=== PATIENT | male | born 1965 | race Caucasian/White ===

== ENCOUNTER 2021-08-06 15:02 | Outpatient (REF) | payer OTHER, SELFPAY ==
[2021-08-06 16:02] LABS: Alanine Aminotransferase 17 U/L (0-40); Aspartate Amino Transferase 16 U/L (5-37)
== END 2021-08-06 15:03 | disposition home or self-care (01) ==
LOC: HO.LAB 15:02
PROVIDERS: PCP Family Medicine; Visit Provider Family Medicine
DX: E78.00 Pure hypercholesterolemia, unspecified (principal); Z79.899 Other long term (current) drug therapy
CPT/HCPCS: 36415; 82550; 84450; 84460

== ENCOUNTER 2023-03-23 07:39 | Outpatient (REF) | payer OTHER, SELFPAY ==
[2023-03-23 11:26] LABS: Alanine Aminotransferase 19 U/L (0-40); Aspartate Amino Transferase 18 U/L (5-37)
== END 2023-03-23 07:40 | disposition home or self-care (01) ==
LOC: HO.10HDL 07:39
PROVIDERS: Visit Provider Family Medicine
DX: E78.00 Pure hypercholesterolemia, unspecified (principal); Z79.899 Other long term (current) drug therapy
CPT/HCPCS: 36415; 82550; 84450; 84460

== ENCOUNTER 2024-03-23 07:30 | Outpatient (REF) | payer OTHER, SELFPAY ==
[2024-03-23 11:18] LABS: Alanine Aminotransferase 18 U/L (0-40); Aspartate Amino Transferase 19 U/L (5-37)
== END 2024-03-23 07:31 | disposition home or self-care (01) ==
LOC: HO.10HDL 07:30
PROVIDERS: Visit Provider Family Medicine
DX: E78.00 Pure hypercholesterolemia, unspecified (principal); Z79.899 Other long term (current) drug therapy
CPT/HCPCS: 36415; 82550; 84450; 84460

== ENCOUNTER 2024-09-05 08:36 | Outpatient (REF) | payer OTHER, SELFPAY ==
[2024-09-05 11:47] LABS: Alanine Aminotransferase 30 U/L (0-40); Aspartate Amino Transferase 28 U/L (5-37); Cholesterol 153 mg/dL (<200); Estimated Glomerular Filt Rate > 60; Glucose Fasting 101 mg/dL (60-99); HDL Cholesterol 41 mg/dL (>40); LDL Cholesterol Calculated 98 mg/dL (<100); Triglycerides 73 mg/dL (<150)
[2024-09-05 12:01] LABS: Estimated Average Glucose 117 mg/dL; Hemoglobin A1c % 5.7 % (<6.0); Total Hemoglobin (HGBA1C) 4014.3776 umol/L
== END 2024-09-05 08:37 | disposition home or self-care (01) ==
LOC: HO.10HDL 08:36
PROVIDERS: Visit Provider Family Medicine
DX: E78.00 Pure hypercholesterolemia, unspecified (principal); Z79.899 Other long term (current) drug therapy; Z83.3 Family history of diabetes mellitus
CPT/HCPCS: 36415; 80061; 82550; 82565; 82947; 83036; 84450; 84460

== ENCOUNTER 2025-03-07 07:39 | Outpatient (AMB) | payer OTHER, SELFPAY ==
--- NOTE | 2025-03-07 07:46 | A.OFFPC_ITS ---
Vital Signs 03/07/25 07:57 Height 5 ft 3 in Weight 77.111 kg BMI 30.1 BP 144/84 H Respiration 14 Pulse 69 Pulse Source Pulse Oximeter Temp 97.9 F Temp Source Temporal Artery Scan Pulse Oximetry (%) 97 Oxygen Delivery Method Room Air Intake Visit Reasons: 4 MO F/UP - [facility] Call Center Dispatcher Required: No Accompanied by: Self / Same As Patient Allergies No Known Allergies Allergy (Verified 03/07/25 07:54) Tobacco use date assessed: 03/07/25 Dental Screening Dental Screen Date: 03/07/25 Did you have a dental visit in the last 12 months?: Yes Did you have a dental problem in the last 6 months where you did not have access to dental care?: No Was dental information given to patient?: No HPI HPI Comments History of Present Illness Details 59-year-old male with history of hyperch olesterolemia, seasonal allergies, right bundle branch block, PVCs presenting to the office today for management of chronic conditions and to establish care. Hypercholesterolemia-last LDL 98. On atorvastatin 10 mg daily Hypertension/PVCs-stable on metoprolol 50 mg ER. Saw cards in [facility] recently. Had Holter, will request results. Recheck 136/82. Checking at home. Obesity- BMI 30.1. Eating healthy and exercising with stretching, hiking, runn ing, calisthenics Concerns: None Health maintenance: Last colonoscopy- about 2019. [facility], obtain records Due for PSA ROS: General: No fevers, malaise, unintentional weight loss HEENT: No blurred vision, diplopia. No sore throat, nasal congestion, rhinorrhea, sinus pain, ear pain Cardiovascular: No chest pain, palpitations, or leg edema Respiratory: No shortness of breath, wheezing, cough GI: No abdominal pain, nausea, vomiting, diarrhea, constipation, melena, hematochezia : No dysuria, hematuria, increased urinary frequency, decreased urinary output MSK: No myalgia, back pain Neuro: No headaches, weakness, paresthesias Skin: No rashes or lesions EXAM: Constitutional - Awake and Alert, No apparent distress Eyes - PERRL Cardiovascular - S1S2, RRR, No edema Respiratory - Normal lung expansion, Normal respiratory effort, No respiratory distress, CTA bilaterally Extremities - no calf tenderness bilaterally, no swelling Skin - Warm/Dry Neurological - Alert & oriented x3 Psychological - Appropriate affect [facility] Medical History (Updated 03/07/25 @ 08:10 by EVARISTO Santos) PVC (premature ventricular contraction) Obesity HLD (hyperlipidemia) HTN (hypertension) Social History Housing: House Patient Tobacco Use Status: Never used Tobacco e-Cigarette/Vaping Use: Never Used service: Yes ([employer]) Current occupational status: retired Hearing needs: Yes (Bilateral) Vision needs: Yes (Rx glasses) Questionnaire PHQ-9 Over the last 2 weeks, how often have you been bothered by any of the following problems? 1. Little interest or pleasure in doing things: not at all 2. Feeling down, depressed, or hopeless: not at all 3. Trouble falling or staying asleep, or sleeping too much: not at all 4. Feeling tired or having little energy: not at all 5. Poor appetite or overeating: not at all 6. Feeling bad about yourself - or that you are a failure or have let yourself or your family down: not at all 7. Trouble concentrating on things, such as reading the newspaper or watching television: not at all 8. Moving or speaking so slowly that other people could have noticed. Or the opposite - being so fidgety or restless that you have been moving around a lot more than usual: not at all 9. Thoughts that you would be better off or of hurting yourself in some way: not at all Total score: 0 Source: Developed by Drs. Duy Stover, Kendra Sandoval, Serafin Bajwa and colleagues, with an educational elida from [employer]. Thrive Questionnaire Date Thrive assessed: 03/07/25 I am a: Patient What is your living situation today?: I have a steady place to live Within the past 12 months, did the food you bought not last and you didn't have the money to get more?: Never true Within the past 12 months, did you worry whether your food would run out before you got money to buy more?: Never true Do you have trouble paying for medicines?: No Do you have trouble getting transportation to medical appointments?: No Do you have trouble paying your heating and electricity bill?: No Do you have trouble taking care of your child, family member or friend?: No Do you have trouble with day-to-day activities such as bathing, preparing meals, shopping, managing finances, etc.?: No Are you currently unemployed and looking for a job?: No Are you interested in more education?: No Please select the resources that you would like help with: None THRIVE Score: 0 AUDIT C Alcohol Use Questionnaire (AUDIT-C) 1. How often do you have a drink containing alcohol?: Monthly or less 2. How many drinks containing alcohol do you have on a typical day when you are drinking?: 1 or 2 Total Score: 1 JEREMY-7 AMB Questionnaire JEREMY-7 Date JEREMY - 7 assessed: 03/07/25 Feeling nervous, anxious, or on edge: 0 = Not at all Not being able to stop or control worryin = Not at all Worrying too much about different things: 0 = Not at all Trouble relaxin = Not at all Being so restless that it is hard to sit still: 0 = Not at all Becoming easily annoyed or irritable: 0 = Not at all Feeling afraid as if something awful might happen: 0 = Not at all Total JEREMY-7 score (0-4 normal; 5-9 mild; 10-14 moderate; 15-21 severe): 0 Source: Developed by Drs. Duy Stover, Kendra Sandoval, Serafin Bajwa and colleagues, with an educational elida from [employer]. Physical exam (Primary Care) Vital Signs: Last Vital Signs Temp 97.9 F 03/07/25 07:57 Pulse 69 03/07/25 07:57 Resp 14 03/07/25 07:57 BP 144/84 H 03/07/25 07:57 Pulse Ox 97 03/07/25 07:57 Oxygen Delivery Method Room Air 03/07/25 07:57 BMI result Body Mass Index 30.1 Tobacco/Smoking Status: Tobacco use Status Tobacco use date assessed 03/07/25 03/07/25 07:59 Patient Tobacco Use Status Never used Tobacco 03/07/25 07:59 e-Cigarette/Vaping Use Never Used 03/07/25 07:59 PHQ-9: PHQ-9 Score PHQ-9: Total score 0 03/07/25 08:03 Thrive Assessment: Date of Thrive Assessment Date Thrive assessed 03/07/25 03/07/25 08:02 Coding Level of Care Code New Pt Level 4 (27666) Complex EM visit Add On G2211 Diagnoses HTN (hypertension) I10 HLD (hyperlipidemia) E78.5 Obesity E66.9 PVC (premature ventricular contraction) I49.3 Assessment & Plan Assessment & Plan (1) HTN (hypertension): Code(s): I10 - Essential (primary) hypertension Category: Medical Plan: Controlled on recheck. Continue metoprolol 50 mg ER. Check blood pressures at home. If over 140/90 on multiple attempts, please reach out to office (2) HLD (hyperlipidemia): Code(s): E78.5 - Hyperlipidemia, unspecified Category: Medical Plan: Lipid panel shows satisfactory result. Continue atorvastatin 10 mg daily (3) Obesity: Code(s): E66.9 - Obesity, unspecified Category: Medical Plan: Continue with weight loss efforts and healthy lifestyle (4) PVC (premature ventricular contraction): Code(s): I49.3 - Ventricular premature depolarization Category: Medical Plan: Controlled. Continue metoprolol and follow-up with cardiology as scheduled. Notes have been requested Plan Follow-up in the office in 6 months with labs completed prior to visit. Records from [facility] requested for colonoscopy results Orders: Orders Basic Metabolic Panel 6 Months E66.9 - Obesity, unspecified, E78.5 - Hyperlipidemia, unspecified, I10 - Essential (primary) hypertension, I49.3 - Ventricular premature depolarization Liver Panel 6 Months E66.9 - Obesity, unspecified, E78.5 - Hyperlipidemia, unspecified, I10 - Essential (primary) hypertension, I49.3 - Ventricular premature depolarization Complete Blood Count Auto Diff 6 Months E66.9 - Obesity, unspecified, E78.5 - Hyperlipidemia, unspecified, I10 - Essential (primary) hypertension, I49.3 - Ventricular premature depolarization Lipid Panel 6 Months E66.9 - Obesity, unspecified, E78.5 - Hyperlipidemia, unspecified, I10 - Essential (primary) hypertension, I49.3 - Ventricular premature depolarization Prostate Specific Antigen 6 Months E66.9 - Obesity, unspecified, E78.5 - Hyperlipidemia, unspecified, I10 - Essential (primary) hypertension, I49.3 - Ventricular premature depolarization
--- OUTSIDE RECORDS SUMMARY | 2025-03-07 07:47 | XMS_ITS | Patient Health Record ---
Author Organization [facility] Address [address] [place] [address] Care Team Providers Care Compensation Agent Name Role Phone Jaime (RETIRED) Graham JOLLY Primary Care Provider Unavailable Duy Sagastume Unavailable [phone] Reason For Referral No Information Medications Medication SIG (Take, Route, Frequency, Duration) Notes Start Date End Date Status Fish Oil Active Multivitamin Active atenolol 25 mg once a day For palpitations Active Problems Problem Type SNOMED Code ICD Code Onset Dates Problem Status W/U Status Risk Notes Problem [id number] Encounter for screening for malignant neoplasm of colon (Z12.11) Active confirmed Problem Screening for malignant neoplasm of rectum (386803373) Encounter for screening for malignant neoplasm of rectum (Z12.12) Active confirmed Problem [id number] Preprocedural examination (Z01.818) Active confirmed Plan Of Treatment Future Test Test Name Order Date COLONOSCOPY 07/03/2016 Insurance Providers Payer Name Payer Address Payer Phone Subscriber Number Group Number Insured Name Patient Relationship to Insured Coverage Start Date Coverage End Date [facility] [address] [place] [address] [id number] STEVE CRUZ Self - patient is the insured Medical (General) History Medical History History ICD Code Denies AL,DM,CVA,Lung disease,renal dise ase palpitations Surgical History Surgery Date(Month/Year) eye surgery-as child
--- OUTSIDE RECORDS SUMMARY | 2025-03-07 07:47 | XMS_ITS | Clinical Summary ---
Author Organization [facility] Address [address] [address] [place] [address] Phone Care Team Providers Care Clerical Coordinator Name Role Phone Graham Sandoval MD Primary Care Provider Allergies No known active allergies Medications atorvastatin (LIPITOR) 10 MG tablet Active metoprolol succinate (TOPROL-XL) 50 MG 24 hr tablet Take 1 tablet (50 mg total) by mouth daily. 90 tablet 3 5 Active metoprolol succinate (TOPROL-XL) 25 MG 24 hr tablet 02/11/20 25 Discontinu ed(No longer taking) Active Problems Problem Noted Date Diagnosed Date Benign essential hypertension 02/10/2025 Assessment & Plan (02/10/2025 7:08 AM EDT): Mildly elevated today the increased dose of metoprolol should get him right to the guidelines. Palpitations 11/25/2024 Assessment & Plan (02/10/2025 7:07 AM EDT): As mentioned he has documented short bursts of SVT that are symptomatic they are definitely improved with 25 mg of metoprolol long-acting we are going to bump up his metoprolol to 50 mg daily and follow-up with him and reevaluate in 6 months. Assessment & Plan (11/25/2024 8:23 AM EDT): As mentioned he definitely sounds like he has an arrhythmia such as paroxysmal supraventricular tachycardia I have ordered him a 7-day MCT monitor and an echocardiogram. If this is not revealing and he has episodes that are profound and infrequent we may need to put in an implantable monitor. Cardiac murmur, unspecified 11/25/2024 Assessment & Plan (02/10/2025 7:07 AM EDT): He does not have any significant valvular heart disease by recent echo with a normal EF. Assessment & Plan (11/25/2024 8:23 AM EDT): In addition I ordered this patient an echocardiogram. Encounters Date Type Department Care Team Description 02/10/2025 7:00 AM EDT Office Visit [facility] [address], [address] [place] [address] Gulshan Giordano, Palpitations (Primary Dx); Cardiac murmur, unspecified; Benign essential hypertension 01/30/2025 Orders Only [facility] [address], [address] [place] [address] Gulshan Giordano DO 01/10/2025 1:02 PM EDT - 01/10/2025 11:59 PM EDT Hospital Encounter Echo Lab [address] [place] [address] Gulshan Giordano, DO Discharge Disposition: Home or Self Care 11/25/2024 Procedure Pass Echo Lab [address] [place] [address] from Last 3 Months Social History Tobacco Use Types Packs/Day Years Used Date Smoking Tobacco: Never Smokeless Tobacco: Never Education Answer Date Recorded Are you interested in more education? Not on ady e 11/18/2024 Are you concerned about learning? Not on file 11/18/2024 No 11/18/2024 No 11/18/2024 Digital Access Answer Date Recorded No 11/18/2024 No 11/18/2024 Reliable internet access at home? Not on file 11/18/2024 Device with a working camera? Not on file Sex and Gender Information Value Date Recorded Sex Assigned at Not on file Legal Sex Male 11:31 AM EDT Gender Identity Not on file Sexual Orientation Not on file Last Filed Vital Signs Vital Sign Reading Time Taken Comments Blood Pressure 146/92 02/10/2025 6:52 AM EDT Pulse 82 02/10/2025 6:52 AM EDT Temperature - - Respiratory Rate - - Oxygen Saturation 97% 02/10/2025 6:52 AM EDT Inhaled Oxygen Concentration - - Weight 75.3 kg (166 lb) 02/10/2025 6:52 AM EDT Height 160 cm (5' 3 ) 02/10/2025 6:52 AM EDT Body Mass Index 29.41 02/10/2025 6:52 AM EDT Plan of Treatment Upcoming Encounters Date Type Department Care Team (Late st Contact Info) Description 08/14/2025 7:30 AM EDT Office Visit [facility] [address], [address] [place], [place] [id number] Gulshan Giordano DO [address] [facility] [address] [place] [id number] Health Maintenance Due Date Last Done Comments Adult Td,Tdap Booster 1964 LIPID PANEL 1964 DEPRESSION SCREENING 1976 HEPATITIS C SCREENING 1982 HIV ONE-TIME SCREENING (18-6 5 YEARS) 1982 SCREENING FOR DIABETES 12/19/1999 COLOGUARD 2009 COLONOSCOPY 2009 COLORECTAL CANCER SCREENING 2009 FIT TEST 2009 FOBT 2009 SIGMOIDOSCOPY 2009 VIRTUAL COLONOSCOPY 2009 PNEUMOCOCCAL VACCINES (50+ y ears) (1 of 1 - PCV) 2014 ZOSTER VACCINES (1 of 2) 2014 INFLUENZA VACCINE (#1) 2025 COVID-19 VACCINE ( - 2023-2 5 season) 2025 BLOOD PRESSURE 08/10/2025 02/10/2025 RSV VACCINE (1 - 1-dose 75+ series) 12/19/2039 SMOKING STATUS SCREENING (On ce After 26 Yrs) Completed 02/10/2025 HEPATITIS A VACCINES Aged Out No long er eligible based on patient's age to complete this topic HIB VACCINES Aged Out No longer eligi ble based on patient's age to complete this topic MENINGOCOCCAL VACCINES (ACWY) Aged Out No longer eligible based on patient's age to complete this topic MENINGOCOCCAL VACCINES (B) Aged Out N o longer eligible based on patient's age to complete this topic Medical Devices Not on file Procedures Procedure Name Priority Date/Time Associated Diagnosis Comments OUTSIDE MONITOR Routine 01/30/2025 9:12 AM EDT TTE COMPREHENSIVE Routine 01/10/2025 1:3 9 PM EDT Palpitations Cardiac murmur, unspecified from Last 3 Months Results * Outside Monitor Report Only (01/30/2025 9:12 AM EDT) us Gulshan Giordano DO CV CARDIAC SERVICES ORDERABLE S Final Result * TTE COMPREHENSIVE (01/10/2025 1:39 PM EDT) Height 160 cm Weight 62 kg Systolic BP 138 mmHg Diastolic BP 78 mmHg Interventricular Septum Thickness 10 6 - 11 mm Left Ventricle Internal Diameter End Diastole 52 42 - 58 mm Left Ventricle Internal Diameter End Systole 35 <40 mm Left Ventricular Outflow Tract Diameter 24.0 mm Left Ventricular Posterior Wall Thickness 7 6 - 11 mm Left Ventricle Ea Lateral Wave Speed 9.6 cm/s Left Ventricle Ea Septal Wave Speed 7.9 cm/s Ejection Fraction 55 50 - 75 Percent Left Atrium Dimension Anterior-Posterior 38 15 - 40 mm Aortic Valve Regurgitation Pressure Half Time 528 ms Aortic Valve Peak Velocity 1.1 m/s Aortic Valve Peak Gradient 5 mmHg Aortic Valve Mean Gradient 3 mmHg Aortic Valve Time Velocity Integral 213.0 mm Aortic Arch Diameter 26 mm Aortic Sinus Diameter 36 <40 mm Ascending Aorta Diameter 36 <36 mm Inferior Vena Cava Diameter 18 <21 mm Mitral Valve Deceleration Time 155 ms Left Ventricle A Wave Speed 101.0 cm/s Left Ventricle E Wave Speed 68.9 cm/s Pulmonary Artery End Diastolic Velocity 0.9 m/s Pulmonary Valve Peak Velocity 1.2 m/s Pulmonary Valve Peak Gradient 6 mmHg Right Ventricle Basal Diameter 29 25 - 41 mm Tricuspid Valve Peak Velocity 2.7 m/s Raw LV EF% 55 % MV E/E' Tissue Velocity Lateral 7.18 Relative Wall Thickness 0.27 0.22 - 0.42 MV E/A ratio 0.7 MV E/e' septal 8.72 Left Ventricle E/e' Average 7.9 Aortic Valve Prosthetic Peak Gradient 5 mmHg Aortic Valve Prosthetic Mean Gradient 3 mmHg Aorta Sinus Index by Height 2.25 cm/m Aorta Sinus CSA index by Height 6.36 cm2/m Asc Aorta CSA Index by Height 6.36 cm2/m Right Ventricle to Right Atrium Pressure Gradient 29 mmHg Right Ventricle Peak Systolic Pressure (Assuming RAP 10) 39 mmHg MGB CV ECHO TV RVSP (ASSUMING RAP OF 5) 34 mmHg RVSP (Exclusive of RAP) 29 mmHg Pulmonic Valve Prosthetic Peak Gradient 6 mmHg Echo E/Ea 8.72 Body Surface Area 1.64 m2 Left Atrial Volume Index 29 16 - 34 mL/m2 Right Ventricle Peak Systolic Pressure 32 mmHg Right Ventricle TAPSE 25 >=17 mm Right Ventricle Pulse Doppler S Wave 14.0 >=9.5 cm/s Left Ventricle indexed to BSA 95.7 g/m2 Left Atrial Volume 48 mL Left Atrial Volume Index by Height 30 mL/m Right Atrium Area 12 cm2 Right Atrium Area index 7 cm2/m2 Aortic Valve Sinus Index by BSA 22 mm/m2 Ascending Aorta Index 22 mm/m2 Right Atrium Pressure Estimated 3 mmHg Pulmonary Artery End Diastolic Pressure 6 mmHg Ascending Aorta Index 22 mm Aortic Sinus Index 22 mm Ascending Aorta Diameter 22 mm Aortic Valve Sinus Index 1 22 20 - 32 mm AO ASC DIAM BSA INDEX 21.95 Anatomical Region Laterality Modality Heart Ultrasound Narrative 01/13/2025 8:42 AM EDT Images from the original result were not included. 1. The indication is palpitations. The estimated ejection fraction is 55 to 60%. Diastolic function is normal left ventricular thickness is normal regional wall motion is normal. 2. Normal RV size and function. 3. Trileaflet aortic valve there is no evidence of aortic stenosis, the ascending aortic root is normal size. There is trivial aortic regurgitation. 4. Trace mitral and tricuspid insufficiency, the PA pressure is normal. 5. Normal pericardium and no prior echo available for comparison. Left Ventricle The left ventricle is normal in size. There is normal wall thickness. There is normal left ventricular systolic function. The LV ejection fraction is 55% (calculated via biplane measurement). There are no wall motion abnormalities. LV diastolic function appears within normal limits for age. The E/A ratio is 0.7. The e' septal wave velocity is 7.9 cm/s. The e' lateral wave velocity is 9.6 cm/s. The average E/e' ratio is 7.9. Right Ventricle The right ventricle is normal in size. The RV basal dimension is 29 mm. There is normal right ventricular systolic function. TAPSE is 25 mm. RV S' wave is 14.0 cm/s. Left Atrium The left atrium is normal in size. The left atrial volume is 48 mL. There are normal flow patterns in the pulmonary vein. Right Atrium The right atrium is normal in size. The right atrial area is 12 cm2. The IVC is normal in size with normal inspiratory collapse. This is consistent with normal RA pressure. The IVC diameter is 18 mm (normal: <= 21 mm). Hepatic veins are normal in size. Mitral Valve There is mitral valve thickening. There is no mitral stenosis. There is trace mitral regurgitation. Tricuspid Valve The tricuspid valve appears normal. There is no tricuspid stenosis. There is trace to mild tricuspid regurgitation. The RV systolic pressure was calculated at 32 mmHg (using TR peak velocity of 2.7 m/s and assuming an RA pressure of 3 mmHg). Aortic Valve The aortic valve is tricuspid. There is leaflet thickening without stenosis. The aortic valve peak velocity is 1.1 m/s. The peak and mean aortic valve gradients are 5 mmHg and 3 mmHg respectively. There is trace aortic regurgitation. The regurgitation pressure half time is 528 ms. The visualized portions of the thoracic aorta appear normal in size. Pulmonic Valve The pulmonic valve appears normal. Pericardium There is no pericardial effusion. There are no pleural effusions. General Findings The image quality was good (2). Technique(s) used in the evaluation: Color flow Doppler and Spectral Doppler. The predominant rhythm during the study was sinus. Comparison Findings There are no prior studies for comparison. IAS/IVS The interatrial septum appears normal. There is no evidence of patent foramen ovale (PFO). The interventricular septum appears normal. There is no evidence of a ventricular septal defect. us Gulshan Giordano DO CV ECHO ORDERABLES Final Resu lt from Last 3 Months Insurance [employer] [address] [address] [employer] [address] [place] [address] [address] [employer] Care Teams Clerical Coordinator Relationship Specialty Start Date End Date Grahma Sandoval MD [address] [place] [address] Dr [place], [place] [address] PCP - General Internal Medicine 11/18/24 Additional Source Comments The information contained in this document represents components of the legal health record. It is not the complete legal health record.[facility]
--- OUTSIDE RECORDS SUMMARY | 2025-03-07 07:47 | XMS_ITS | Encounter Summary ---
Author Organization [facility] Address [address] [facility] [address] [place] [phone] Phone Care Team Providers Care Ship Rigger Name Role Phone Graham Sandoval MD Primary Care Provider Encounter Details Date Type Department Care Team (Late st Contact Info) Description 11/25/2024 Procedure Pass Echo Lab [address] [place] [address] Social History Tobacco Use Types Packs/Day Years Used Date Smoking Tobacco: Never Assessed Education Answer Date Recorded Are you interested [...] on file Sexual Orientation Not on file documented as of this encounter Plan of Treatment Upcoming Encounters Date Type Department Care Team (Late Contact Info) Description 08/14/2025 7:30 AM EDT Office Visit [facility] [address], [address] [place] [address] Gulshan Giordano, DO [address] [facility] [address] [place] [phone] documented as of this encounter Visit Diagnoses Not on filedocumented in this encounter Care Teams Ship Rigger Relationship Specialty Start Date End Date Graham Sandoval MD [address] [place] [address] [place] [address] PCP - General Internal Medicine 11/18/24 documented as of this encounter Additional Source Comments The information contained in this document represents components of the legal health record. It is not the complete legal health record.[facility]
--- OUTSIDE RECORDS SUMMARY | 2025-03-07 07:47 | XMS_ITS | Encounter Summary ---
Author Organization [facility] Address [address] [place] [id number] Phone Care Team Providers Care Commercial Leasing Agent Name Role Phone Graham Sandoval MD Primary Care Provider [phone] Encounter Details Date Type Department Care Team (Late st Contact Info) Description 01/30/2025 Orders Only [facility] [address], [address] [place] [address] Gulshan Giordano, DO [address] [facility] [facility] [place] [address] Social History Tobacco Use Types Packs/Day Years [...] Description 08/14/2025 7:30 AM EDT Office Visit [facility] [address], [address] [place] [address] Gulshan Giordano DO [address] [facility] [place] [address] [email or web address] documented as of this encounter Procedures Procedure Name Priority Date/Time Associated Diagnosis Comments OUTSIDE MONITOR Routine 01/30/2025 9:12 AM EDT documented in this encounter Results * Outside Monitor Report Only (01/30/2025 9:12 AM EDT) us Gulshan Giordano DO [facility] ORDERABLE S Final Result documented in this encounter Visit Diagnoses Not on filedocumented in this encounter Care Teams Commercial Leasing Agent Relationship Specialty Start Date End Date Graham Sandoval MD [address] [place] [address] [place] [address] PCP - General Internal Medicine 11/18/24 documented as of this encounter Additional Source Comments The information contained in this document represents components of the legal health record. It is not the complete legal health record.[facility]
[2025-03-07 07:57] VITALS: BP 144/84; PULSE 69; RESP 14; TEMP 36.6; O2SAT 97; BMI 30.1
== END 2025-03-07 08:14 | disposition home or self-care (01) ==
LOC: HO.HMCHD 07:40
PROVIDERS: PCP Family Medicine; Visit Provider Physician Assistant
DX: I10 Essential (primary) hypertension (principal); E78.5 Hyperlipidemia, unspecified; E66.9 Obesity, unspecified; I49.3 Ventricular premature depolarization